=== PATIENT | male | born 1980 | race Caucasian/White ===

== ENCOUNTER 2017-08-30 16:50 | Emergency (ER) | payer OTHER ==
[2017-08-30 17:07] VITALS: BP 129/71; PULSE 68; TEMP 98.3; BMI 30.6
--- NOTE | 2017-08-30 17:36 | PDOC ---
Suture Removal/Wound Check HPI - History of Present Illness Chief Complaint: Suture/Staple Removal (other) Stated Complaint: SUTURE REMOVAL Time Seen by Provider: 08/30/17 17:14 History Source: Yes: Patient Exam Limitations: Yes: No Limitations Treated at: [facility] Cara Flores Date of Last ED visit: 08/22/17 ([facility]) - Previous ED Treatment Type of procedure performed on last visit: Yes: Laceration Repair Tetanus Immunization: Yes: Up to Date Antibiotics Prescribed: Yes Past History - Past Medical History Allergies/Adverse Reactions: Allergies Allergy/AdvReac Type Severity Reaction Status Date / Time No Known Allergies Allergy Verified 08/30/17 17:07 Home Medications: Ambulatory Orders NK [No Known Home Medication] 08/30/17 Other medical history: NONE - Suicide/Smoking/Psychosocial Hx Smoking History: Never smoked Hx Alcohol Use: No Drug/Substance Use Hx: No Suture Removal/Wound Check PE - Physical Exam Laceration/Wound Check Symptoms: reports: None Current Severity Level: None Maximum Severity Level: None Pain Localization: None *Review of Systems - Review of Systems Constitutional: No: Symptoms Reported Musculoskeletal: No: Symptoms Reported Integumentary: Yes: Symptoms Reported, Erythema Hematologic/Lymphatic: No: Symptoms Reported All Other Systems: Reviewed and Negative Medical Decision Making - Medical Decision Making 08/30/17 17:28 Patient here for suture removal was initially sutured one week prior at sound sure and nourished well, there is erythema noted at suture line localized suture irritation there is also uneven area to right of wound bridge of nose. 10 sutures removed there is no dehiscence. There is localized suture irritation which mildly decreased after suture removal. Explained to patient that there is a large uneven scar to right lateral aspect of wound, patient will need to follow-up with last etc. dermatology, he verbalized understanding. *DC/Admit/Observation/Transfer Diagnosis at time of Disposition: Visit for suture removal - Discharge Dispostion Disposition: HOME Condition at time of disposition: Good Admit: No - Patient Instructions Printed Discharge Instructions: DI for Suture Removal Additional Instructions: Please keep area clean and dry. recommend follow up with plastics clinic for evaluation of scar. [place] [facility] [phone]
== END 2017-08-30 17:49 | disposition home or self-care (01) ==
LOC: JERFT 16:50
DX: Z48.02 Encounter for removal of sutures (principal)
CPT/HCPCS: 99281-25

== ENCOUNTER 2017-12-10 05:56 | Emergency (ER) | payer OTHER ==
[2017-12-10 06:15] VITALS: PULSE 64; BMI 29.7
[2017-12-10 06:23] VITALS: BP 130/80; TEMP 98
--- NOTE | 2017-12-10 06:31 | PDOC ---
History of Present Illness - General Chief Complaint: Sore Throat Stated Complaint: SORE THROAT Time Seen by Provider: 12/10/17 06:14 - History of Present Illness Initial Comments: Mr Eder Palm is a 37yo M with no PMHx who presents with sore throat. He had 2- 3 days of viral URI symptoms such as sneezing, runny nose, congestion. Subsequently had pink pinpoint rash throughout abdomen and a couple episodes of diarrhea. Minimal coughing w/ clear sputum. Endorsed episodes of fever, recorded low grade temp 99, took Motrin last night. Of note, children were sick at home with viral illnesses. Denies CP, SOB. Denies generalized body aches or joint pain. Past History - Past Medical History Allergies/Adverse Reactions: Allergies Allergy/AdvReac Type Severity Reaction Status Date / Time No Known Allergies Allergy Verified 08/30/17 17:07 Home Medications: Ambulatory Orders Ibuprofen [Motrin -] 600 mg PO TID PRN #21 tablet 12/10/17 COPD: No Other medical history: Denies any medical history - Immunization History Immunization Up to Date: Yes - Suicide/Smoking/Psychosocial Hx Smoking History: Never smoked Have you smoked in the past 12 months: No Information on smoking cessation initiated: No Hx Alcohol Use: No Drug/Substance Use Hx: No *Physical Exam - Vital Signs Last Vital Signs Temp Pulse Resp BP Pulse Ox 98 F 64 16 130/80 99 12/10/17 06:19 12/10/17 06:19 12/10/17 06:19 12/10/17 06:19 12/10/17 06:19 - Physical Exam Comments: GEN: AAOx3, NAD, Lying comfortably, appears congested HEENT: PERRLA, EOMi, Nasal congestion, enlarged tonsils w/o exudate, +anterior and posterior cervical LAD CV: S1, S2, RRR LUNG: CTABL ABD: Soft, NT, ND, normoactive BS [place] pinpoint maculopapular rash throughout abdomen MSK: No edema, no erythema NEURO: CN 2-12 grossly intact Medical Decision Making - Medical Decision Making 37yo M who presents with 2-3 days of sore throat, viral URI, diffuse abdominal rash, and diarrhea. Patient's children were recently sick at home with viral illnesses. Presentation consistent w/ viral illness. -- Influenza A&B -- Rapid Strep *DC/Admit/Observation/Transfer Diagnosis at time of Disposition: Viral upper respiratory illness - Discharge Dispostion Disposition: HOME Admit: No - Prescriptions Prescriptions: Ibuprofen [Motrin -] 600 mg PO TID PRN #21 tablet PRN Reason: fever/pain - Referrals Referrals: Blue Galvan MD [Staff Physician] - 7 days () - Patient Instructions Printed Discharge Instructions: DI for Viral Upper Respiratory Infection -- Adult - Post Discharge Activity Forms/Work/School Notes: Back to Work
--- NOTE | 2017-12-10 06:47 | PDOC ---
Attending Attestation - Resident Resident Name: Froylan Kirby - ED Attending Attestation I have performed the following: I have examined & evaluated the patient, The case was reviewed & discussed with the resident, I agree w/resident's findings & plan - HPI HPI: 12/10/17 06:45 Pt comes with viral illness and sore throat. Pt will get a rapid strep. - Physicial Exam PE: 12/10/17 06:47 Agree with resident exam - Medical Decision Making 12/10/17 06:47 Strep negative. Home with tylenol motrin/rest
== END 2017-12-10 07:09 | disposition home or self-care (01) ==
LOC: JER 05:56
DX: J06.9 Acute upper respiratory infection, unspecified (principal); B97.89 Other viral agents as the cause of diseases classified elsewhere
CPT/HCPCS: 87070; 87430; 87804; 99281-25

== ENCOUNTER 2021-08-15 15:27 | Emergency (ER) | payer OTHER ==
[2021-08-15 15:44] VITALS: BP 130/82; PULSE 78; TEMP 98.6; BMI 31.6
== END 2021-08-15 18:05 | disposition home or self-care (01) ==
LOC: JER 15:27 → JERFT 15:27
PROC: 0HQ1XZZ Repair Face Skin, External Approach (ICD-10-PCS; principal; 2021-08-15)
DX: S01.111A Laceration without foreign body of right eyelid and periocular area, initial encounter (principal); W50.0XXA Accidental hit or strike by another person, initial encounter
CPT/HCPCS: 12013; 99282-25

== ENCOUNTER 2021-08-23 19:07 | Emergency (ER) | payer OTHER ==
[2021-08-23 19:13] VITALS: BP 116/76; PULSE 95; TEMP 98.5; BMI 29.7
== END 2021-08-23 20:14 | disposition home or self-care (01) ==
LOC: JERFT 19:07
DX: Z48.02 Encounter for removal of sutures (principal)
CPT/HCPCS: 99281-25

== ENCOUNTER 2022-07-16 20:40 | Emergency (ER) | payer OTHER ==
[2022-07-16 20:48] VITALS: BP 119/79; PULSE 85; RESP 19; TEMP 98.4; BMI 27.3
[2022-07-16] MEDS ORDERED: IBUPROFEN 600 MG TABLET (FP) PO ONE (21:49)
[2022-07-16] MEDS ORDERED: KETOROLAC TROMETHAMINE 30 MG/1 ML VIAL IM ONE (21:52)
[2022-07-16] MEDS ORDERED: KETOROLAC TROMETHAMINE 30 MG/1 ML VIAL ONE (21:54)
== END 2022-07-16 23:13 | disposition home or self-care (01) ==
LOC: JERFT 20:40
PROC: 3E0233Z Introduction of Anti-inflammatory into Muscle, Percutaneous Approach (ICD-10-PCS; principal; 2022-07-16)
DX: S80.12XA Contusion of left lower leg, initial encounter (principal); X50.0XXA Overexertion from strenuous movement or load, initial encounter; Y93.66 Activity, soccer
CPT/HCPCS: 73590-TC-LT-FY; 73610-TC-LT-FY; 93971-TC; 99285-25

== ENCOUNTER 2023-09-19 09:47 | Emergency (ER) | payer OTHER ==
[2023-09-19 09:54] VITALS: BP 132/93; PULSE 80; RESP 18; TEMP 98; BMI 28.1
[2023-09-19] MEDS ORDERED: LIDOCAINE HCL 1%, 10 MG/ML (50 mL VIAL) SQ ONE (10:09)
[2023-09-19] MEDS ORDERED: LIDOCAINE HCL 1%, 10 MG/ML (20ML VIAL) ONE (10:11)
[2023-09-19] MEDS ORDERED: KETOROLAC TROMETHAMINE 30 MG/1 ML VIAL IM ONE (11:16)
[2023-09-19] MEDS ORDERED: AMOX TR/POT CLAV 875MG/125MG TABLETS (FP) PO ONE (11:27)
[2023-09-19] MEDS ORDERED: AMOX TR/POT CLAV 875MG/125MG TABLETS (FP) ONE (11:34)
[2023-09-19] MEDS ORDERED: KETOROLAC TROMETHAMINE 30 MG/1 ML VIAL ONE (11:34)
== END 2023-09-19 12:59 | disposition home or self-care (01) ==
LOC: JERFT 09:47 → JER 09:47 → JERFT 12:59
PROC: 3E0233Z Introduction of Anti-inflammatory into Muscle, Percutaneous Approach (ICD-10-PCS; principal; 2023-09-19)
DX: S62.663B Nondisplaced fracture of distal phalanx of left middle finger, initial encounter for open fracture (principal); W23.0XXA Caught, crushed, jammed, or pinched between moving objects, initial encounter; Y99.0 Civilian activity done for income or pay; Z20.822 Contact with and (suspected) exposure to COVID-19
CPT/HCPCS: 0241U-QW; 73130-TC-LT-FY; 96372; 99284-25

== ENCOUNTER 2024-04-18 11:08 | Emergency (ER) | payer OTHER ==
[2024-04-18 11:14] VITALS: BP 124/67; PULSE 65; RESP 18; TEMP 98.3; BMI 31.0
[2024-04-18] MEDS ORDERED: KETOROLAC TROMETHAMINE 30 MG/1 ML VIAL ONE (11:55)
[2024-04-18] MEDS: KETOROLAC TROMETHAMINE 30 MG/1 ML VIAL IM ONE (12:00)
== END 2024-04-18 13:05 | disposition home or self-care (01) ==
LOC: JERFT 11:08
PROC: 3E0233Z Introduction of Anti-inflammatory into Muscle, Percutaneous Approach (ICD-10-PCS; principal; 2024-04-18)
DX: B34.9 Viral infection, unspecified (principal); R52 Pain, unspecified; R50.9 Fever, unspecified; J02.9 Acute pharyngitis, unspecified; R05.9 Cough, unspecified; Z20.822 Contact with and (suspected) exposure to COVID-19
CPT/HCPCS: 0241U-QW; 71046-TC-FY; 87651; 96372; 99284-25